=== PATIENT | male | born 1965 | race Caucasian/White ===

== ENCOUNTER 2017-04-28 16:25 | Outpatient (CLI) | payer OTHER ==
[~2017-04-28 16:25] MED LIST: DOLOGESIC CAPSU1 CAP PO
== END 2017-04-28 16:45 | disposition home or self-care (01) ==
LOC: RAD 16:25
DX: H92.01 Otalgia, right ear (principal)

== ENCOUNTER 2018-09-29 07:00 | Outpatient (CLI) | payer OTHER | END 2018-09-29 08:00 | disposition home or self-care (01) | LOC: SONOGRAMA 07:00 → MAMO-SONO 10:15 → SONOGRAMA 10:26 | DX: I10 Essential (primary) hypertension (principal); R80.8 Other proteinuria ==

== ENCOUNTER 2019-11-21 07:23 | Outpatient (CLI) | payer OTHER | END 2019-11-21 07:44 | disposition home or self-care (01) | LOC: SONOGRAMA 07:23 | PROVIDERS: ATTEND Specialist | DX: N18.2 Chronic kidney disease, stage 2 (mild) (principal); I10 Essential (primary) hypertension; R80.8 Other proteinuria; M25.531 Pain in right wrist ==

== ENCOUNTER 2019-11-28 14:17 | Outpatient (CLI) | payer OTHER | END 2019-11-28 14:26 | disposition home or self-care (01) | LOC: RAD 14:17 | DX: R07.89 Other chest pain (principal) ==